=== PATIENT | male | born 1945 | race Caucasian/White ===

== ENCOUNTER 2018-02-13 08:02 | Day surgery (SDC) | payer OTHER, BC ==
[2018-01-30 12:44] VITALS: BMI 26.1
[2018-02-13] MEDS ORDERED: ROPIVACAINE HCL 0.5% 30ML VIAL ONE (08:19)
[2018-02-13] MEDS ORDERED: PROPOFOL 20 ML ONE (08:48)
[2018-02-13] MEDS ORDERED: MIDAZOLAM HCL 2 MG/2 ML SINGLE DOSE VIAL ONE (08:49)
[2018-02-13] MEDS ORDERED: LIDOCAINE HCL 2% JELLY (5 ML/TUBE) ONE (08:52)
[2018-02-13] MEDS ORDERED: LIDOCAINE HCL/PF 2% SDV 5ML VIAL ONE (08:52)
[2018-02-13] MEDS ORDERED: KETOROLAC TROMETHAMINE 30 MG/1 ML VIAL ONE (08:52)
[2018-02-13] MEDS ORDERED: DEXAMETHASONE SOD PHOSPHATE 4 MG/1 ML VIAL ONE (08:52)
[2018-02-13] MEDS ORDERED: ONDANSETRON 4 MG/2 ML VIAL ONE (08:52)
[2018-02-13] MEDS ORDERED: ceFAZolin SODIUM 1 GM VIAL ONE (08:52)
[2018-02-13] MEDS ORDERED: ONDANSETRON 4 MG/2 ML VIAL IVPUSH PRN (10:02)
[2018-02-13] MEDS ORDERED: PROMETHAZINE HCL 25 MG/1 ML VIAL IVPUSH PRN (10:02)
[2018-02-13] MEDS ORDERED: oxyCODONE HCL 5 MG TABLET PO PRN ×2 (10:02)
[2018-02-13 10:51] VITALS: PULSE 62; TEMP 97.5
--- NOTE | 2018-02-13 11:40 | OP ---
DATE OF OPERATION: 02/13/2018 PREOPERATIVE DIAGNOSIS: Left wrist sprain. POSTOPERATIVE DIAGNOSIS: Left wrist sprain with triangular fibrocartilage complex tear and dorsal capsular tear and synovitis. OPERATIVE PROCEDURE: Left wrist operative arthroscopy with debridement of radiocarpal joint including triangular fibrocartilage complex tear and dorsal capsular tear and synovitis. SURGEON: Jl Stanford MD TOP AND TRIM WORKER: AD Prater ANESTHESIA: General. COMPLICATIONS: None. ESTIMATED BLOOD LOSS: Minimal. INDICATION FOR PROCEDURE: The patient is a 72-year-old male with the above finding indicated for operative treatment. Risks, benefits and alternatives were discussed with patient at length. Proper informed consent was obtained. PROCEDURE: After proper identification of patient and correct operative site patient was brought to the operating room and placed supine on the table, all bony prominences well padded. Sedation was given. Intraoperative antibiotics were given. Left upper extremity was prepped and draped in the usual sterile fashion. Esmarch bandage was used to exsanguinate the left upper extremity. Tourniquet was inflated to 250 mmHg. Wrist arthroscopy tower was used with 10 pounds of in-line traction with all points of contact well padded. The 3, 4 and 6 R portals were used. These were both made with skin incision only and blunt dissection down to the joint capsule. A 2.7-mm gravity inflow arthroscope was used. A 2.5-mm shaver was used. Radiocarpal joint was found to have significant synovitis especially dorsally and ulnarly and this was debrided with a mechanical shaver. Degenerative tearing of the ulnar aspect of the TFCC was noted and this was debrided with the mechanical shaver. Mild chondromalacia of the distal radius was noted. Scapholunate ligament had mild fraying but was largely intact. Lunotriquetral ligament was intact with mild fraying as well. Wound was irrigated and repaired with 5-0 nylon suture. Sterile dressings were applied. Patient was reversed from anesthesia and brought to the recovery room in stable condition. Ghassan Araiza, the social research assistant, was integral throughout the procedure. The procedure could not have been performed without a skilled operative social research assistant. Armando [email or web address]/[id number]
[2018-02-14 10:14] VITALS: BP 118/75
== END 2018-02-13 11:30 | disposition home or self-care (01) ==
LOC: FASU 08:02
PROVIDERS: ATTEND Orthopaedic Surgery Hand Surgery
PROC: 0RBP4ZZ Excision of Left Wrist Joint, Percutaneous Endoscopic Approach (ICD-10-PCS; principal; 2018-02-13 09:12)
DX: S63.522A Sprain of radiocarpal joint of left wrist, initial encounter (principal); M65.832 Other synovitis and tenosynovitis, left forearm; X58.XXXA Exposure to other specified factors, initial encounter; Y93.9 Activity, unspecified; Y92.9 Unspecified place or not applicable; Y99.9 Unspecified external cause status
CPT/HCPCS: 94760